=== PATIENT | male | born 1970 | race Caucasian/White ===

== ENCOUNTER 2025-06-16 06:19 | Day surgery (SDC) | payer BC ==
[2025-06-05 09:09] VITALS: BMI 36.1
[2025-06-16 09:14] VITALS: TEMP 98
[2025-06-16 09:32] VITALS: BP 115/75; PULSE 53; RESP 14
== END 2025-06-16 09:38 | disposition home or self-care (01) ==
LOC: JASU-ENDO 06:19
PROVIDERS: ATTEND Internal Medicine Gastroenterology
PROC: 0DJD8ZZ Inspection of Lower Intestinal Tract, Via Natural or Artificial Opening Endoscopic (ICD-10-PCS; principal; 2025-06-16 09:00)
DX: Z12.11 Encounter for screening for malignant neoplasm of colon (principal); K64.8 Other hemorrhoids